=== PATIENT | female | born 1975 | race Caucasian/White ===

== ENCOUNTER → 2020-06-27 11:41 | Outpatient (CLI) | payer OTHER, SELFPAY ==
--- NOTE | ~2020-06-27 | MM_ITS ---
EXAMINATION: MM screening augie BI w blaire HISTORY: Screening TECHNIQUE: Craniocaudal and mediolateral oblique 3-D tomosynthesis images were obtained and synthetic 2-D images were generated. CAD analysis was submitted and interpreted. COMPARISON: No prior mammogram is available for comparison at this institution. BREAST PARENCHYMAL COMPOSITION: The breasts are heterogeneously dense, which may obscure small masses . FINDINGS: There is no evidence of suspicious mass, calcification, or architectural distortion to sugg est malignancy in either breast. There has been no suspicious interval change. IMPRESSION: 1. No mammographic evidence of malignancy. 2. Recommend routine screening mammography in one year. BI-RADS Category 1: Negative Reviewed, dictated and finalized at location A.
== END ==
PROVIDERS: Visit Provider Nurse Practitioner Obstetrics & Gynecology
DX: Z12.31 Encounter for screening mammogram for malignant neoplasm of breast (principal)
CPT/HCPCS: 77063; 77067

== ENCOUNTER → 2021-08-28 10:35 | Outpatient (CLI) | payer OTHER, SELFPAY ==
--- NOTE | ~2021-08-28 | MM_ITS ---
EXAMINATION: MM screening augie BI w blaire HISTORY: Screening mammogram TECHNIQUE: Craniocaudal and mediolateral oblique 3-D tomosynthesis images were obtained and synthetic 2-D images were generated. CAD analysis was submitted and interpreted. COMPARISON: 06/27/2020 BREAST PARENCHYMAL COMPOSITION: The breasts are extremely dense, which lowers the sensitivity of mamm ography. FINDINGS: RIGHT BREAST: There is an asymmetry in the anterior third of the slightly inner breast on the cranioc audal view and an asymmetry in the posterior third of the breast just below the nipple axis on the me diolateral oblique view. LEFT BREAST: An asymmetry is present in the posterior third of the slightly inner breast on the crani ocaudal view. IMPRESSION: 1. Bilateral asymmetries of the breasts as described above. 2. Additional mammographic views and possible breast ultrasound are recommended. BI-RADS Category 0: Incomplete: Needs additional imaging evaluation. Reviewed, dictated and finalized at location A. IMPRESSION: 1. Bilateral asymmetries of the breasts as described above. 2. Additional mammographic views and possible breast ultrasound are recommended . BI-RADS Category 0: Incomplete: Needs additional imaging evaluation.
== END ==
PROVIDERS: Visit Provider Nurse Practitioner Obstetrics & Gynecology
DX: Z12.31 Encounter for screening mammogram for malignant neoplasm of breast (principal); R92.8 Other abnormal and inconclusive findings on diagnostic imaging of breast
CPT/HCPCS: 77063; 77067

== ENCOUNTER → 2021-10-01 08:07 | Outpatient (CLI) | payer OTHER, SELFPAY ==
--- NOTE | ~2021-10-01 | MMUS_ITS ---
EXAMINATION: MM diagnostic augie BI w blaire, US breast BI complete HISTORY: Bilateral mammographic asymmetries reported on 08/28/2021 screening mammogram TECHNIQUE: Additional 3-D tomosynthesis images of both breasts were performed and synthetic 2-D image s were generated. CAD analysis was submitted and interpreted. High resolution complete bilateral charly st ultrasound was performed. COMPARISON: 08/28/2021 bilateral screening mammogram BREAST PARENCHYMAL COMPOSITION: The breasts are extremely dense, which lowers the sensitivity of mamm ography. FINDINGS: MAMMOGRAPHIC FINDINGS: Numerous benign appearing microcalcifications are scattered in each breast. No suspicious mass or architectural distortion is evident. ULTRASOUND: There are multiple bilateral circumscribed rounded or parallel hypoechoic and sonolucent lesions in e ach breast, the largest on the right situated in the 11:00 area 3 cm from the nipple, measuring 13 x 6 x 11 mm. The largest on the left is situated at 1:00 4 cm from nipple, measuring approximately 2 x 6 x 8.4 mm. No suspicious mass or shadowing is detected.. IMPRESSION: 1. No mammographic evidence of malignancy 2. Routine mammographic screening is recommended BI-RADS Category 2: Benign finding(s). Reviewed, dictated and finalized at location A. RY SHEAR OPERATOR IMPRESSION: 1. No mammographic evidence of malignancy 2. Routine mammographic screening is recommended BI-RADS Category 2: Benign finding(s).
== END ==
PROVIDERS: Visit Provider Nurse Practitioner Obstetrics & Gynecology
DX: R92.8 Other abnormal and inconclusive findings on diagnostic imaging of breast (principal)
CPT/HCPCS: 76641; 77062; 77066; G0279

== ENCOUNTER 2022-10-09 15:24 | Outpatient (CLI) | payer OTHER, SELFPAY ==
--- NOTE | ~2022-10-09 | US_ITS ---
US pelvic complete DATE: 10/09/2022 16:34 INDICATION: Menorrhagia TECHNIQUE: Real-time and color flow imaging of the pelvic structures. Transabdominal approach COMPARISON: None FINDINGS: The uterus measures 9.9 cm height, 5.1 cm AP and 7.1 cm transverse dimension. There is abnormal heterogeneous irregular soft tissue thickening of the endometrium, measuring up to 1.6 cm AP dimension, with prominent color flow signal consistent with vascularity. Differential diagn osis includes endometrial malignancy, submucosal fibroids, polyps.. Gynecologic consult is recommende d. Left ovary measures 4.1 x 3.2 x 3.0 cm. There is a 3.2 x 2.3 x 2.9 cm left ovarian cyst. Right ovary measures 1.2 x 3.7 x 1.3 cm dimension. There is vascular flow to both ovaries. No other pelvic mass or abnormal pelvic free fluid collection is detected. IMPRESSION: Irregular heterogeneous endometrial soft tissue thickening with vascularity; endometrial carcinoma is not excluded. Gynecologic consult is recommended Reviewed, dictated and finalized at Location A. Reviewed, dictated and finalized at location A. UMER EXPERIENCE CONSULTANT IMPRESSION: Irregular heterogeneous endometrial soft tissue thickening with vas cularity; endometrial carcinoma is not excluded. Gynecologic consult is recomme nded
== END 2022-10-09 15:25 | disposition home or self-care (01) ==
LOC: ANHIMG 15:29
PROVIDERS: PCP Nurse Practitioner Family; Visit Provider Nurse Practitioner Obstetrics & Gynecology
DX: N92.0 Excessive and frequent menstruation with regular cycle (principal); R10.2 Pelvic and perineal pain; R10.84 Generalized abdominal pain; D25.1 Intramural leiomyoma of uterus
CPT/HCPCS: 76856

== ENCOUNTER 2022-10-21 10:18 | Emergency (ER) | payer OTHER, SELFPAY ==
[2022-10-21 11:00] VITALS: BP 168/122; PULSE 110; RESP 16; TEMP 37; O2SAT 100
[2022-10-21 11:18] LABS: Basophils Absolute Auto 0.1 K/mm3 (0.0-0.1); Basophils Percent Auto 0.7 % (0.2-1.2); Eosinophils Absolute Auto 0.1 K/mm3 (0-0.3); Eosinophils Percent Auto 0.9 % (0-4.4); Hematocrit 33.5 % (37.0-47.0); Hemoglobin 10.6 g/dL (12.0-15.0); Immature Granulocyte Absolute 0.05 K/mm3 (0.00-0.031); Immature Granulocyte Percent A 0.4 % (0-0.5); Lymphocytes Absolute Auto 1.99 K/mm3 (0.9-3.2); Lymphocytes Percent Auto 17.1 % (18.3-44.2); Mean Corpuscular HGB Conc 31.6 g/dl (32-36); Mean Corpuscular Hemoglobin 24.9 pg (26-34); Mean Corpuscular Volume 78.8 fl (80-100); Mean Platelet Volume 9.1 fl (7.4-10.4); Monocytes Absolute Auto 0.9 K/mm3 (0.1-0.6); Monocytes Percent Auto 7.6 % (2.6-8.5); Neutrophils Absolute Auto 8.5 K/mm3 (1.3-6.7); Neutrophils Percent Auto 73.3 % (45.5-73.1); Platelet Count Result 523 k/mm3 (150-375); Red Blood Count 4.25 M/mm3 (4.2-5.4); Red Cell Distribution Width 14.1 % (11.5-14.5); White Blood Count 11.6 K/mm3 (4.5-10.0)
[2022-10-21 11:19] LABS: Appearance Urine Clear (Clear); Bilirubin Urine Negative (Negative); Blood Urine 3+ (Negative); Glucose Urine UA Negative (Negative); Ketones Urine Negative (Negative); Leukocyte Esterase Ur Negative LEU/UL (Negative); Nitrate Urine Negative (Negative); Protein Urine Negative (Negative); Specific Grav Ur <= 1.005 (1.001-1.035); Urobilinogen Urine 0.2 mg/dL (<2.0)
[2022-10-21 11:31] LABS: Potassium 4.2 mmol/L (3.4-5.0)
[2022-10-21 11:32] LABS: Alanine Aminotransferase 23 U/L (6-35); Albumin Level 4.8 g/dL (3.5-5.1); Alkaline Phosphatase 85 U/L (38-126); Anion Gap 14 mmol/L (8-16); Aspartate Amino Transferase 26 U/L (14-36); Bilirubin,Total 0.3 mg/dL (0.2-1.3); Blood Urea Nitrogen 11 mg/dL (7-17); Calcium 9.5 mg/dL (8.4-10.2); Carbon Dioxide 18 mmol/L (22-30); Chloride 106 mmol/L (98-107); Estimated CRCL calculation 93 ml/min; Estimated Glomerular Filt Rate > 60; Glucose 90 mg/dL (65-110); Sodium 138 mmol/L (137-145)
[2022-10-21 11:33] LABS: INR 1.2; Prothrombin Time 14.4 Seconds (11.1-14.7)
[2022-10-21 11:40] LABS: Mucus Urine Rare /lpf; RBC Urine 0-2 /hpf (0-2); WBC Urine 0-3 /hpf
[2022-10-21 11:45] LABS: Add Urine Microscopic? YES; Color Urine Light Yellow (Yellow)
[2022-10-21 12:12] VITALS: BP 187/103; PULSE 114; RESP 18; O2SAT 100
--- NOTE | 2022-10-21 12:18 | ED.FEMALEGU ---
HPI - Female Genitourinary General Chief complaint: Vaginal Bleeding Stated complaint: menstrual cramps and bleeding more than 1 pad/hr Time Seen by Provider: 10/21/22 12:17 Source: patient and family Mode of arrival: ambulatory Limitations: no limitations History of Present Illness HPI Narrative: Patient is a 47-year-old female with a history of uterine fibroids presenting to the emergency department for evaluation of pelvic cramping and heavy vaginal bleeding. Patient states she has had intermittent heavy vaginal bleeding since October 02. She has been placed on oral TXA as well as Slynd control without much improvement in her symptoms. She denies any brisk bleeding but states that intermittently she does use greater than 1 heavy tampon per hour. Patient also reports aching pelvic cramping which is dull to moderate in nature without radiation to the back. Patient denies any upper abdominal pain. No dysuria or hematuria. Patient recently had an outpatient pelvic ultrasound which revealed uterine fibroids as well as an endometrial biopsy which she believes was normal. Her computer lab assistant is Dr. Guerra. Related Data Home Medications Medication Instructions Recorded Confirmed Slynd 10/21/22 Allergies Allergy/AdvReac Type Severity Reaction Status Date / Time Penicillins Allergy Mild Hives Unverified 10/21/22 11:04 Sulfa (Sulfonamide Allergy Mild Hives / Unverified 10/21/22 11:04 Antibiotics) Red Face Review of Systems Review of Systems: CONSTITUTIONAL: Denies fever, chills, or sweats. CARDIOVASCULAR: Denies chest pain, palpitations, or edema. RESPIRATORY: Denies cough or dyspnea. GASTROINTESTINAL: Denies abdominal pain, nausea, vomiting, or diarrhea. Reports pelvic pain. GENITOURINARY: Denies dysuria or hematuria. Reports vaginal bleeding. SKIN: Denies rash or itching. MUSCULOSKELETAL: Denies back pain, joint pain, or myalgia. NEUROLOGIC: Denies headache, numbness, or weakness. [facility] Past Medical History Medical History (Updated 10/21/22 @ 12:48 by Maria Guadalupe Canales MD) Uterine fibroid Social History Social History (Updated 10/21/22 @ 12:36 by Maria Guadalupe Canales MD) Smoking status: Never smoker Alcohol intake: never Substance use: never Gender identity (if verbalized by the patient): Female Exam Narrative: GENERAL: Awake, alert, conversant HEAD: Normocephalic, atraumatic. EYES: PERRLA and EOMI. ENT: Nares clear, no rhinorrhea or epistaxis. Mucous membranes moist. NECK: Supple. CHEST: No respiratory distress, breathing even and non labored HEART: Regular rate, sinus rhythm ABDOMEN:Non distended, non tender. Pelvis: Labia majora and minora normal without lesions. Vagina with scant blood. No large blood clots or brisk bleeding. No cervical motion tenderness. No adnexal tenderness or fullness bilaterally. No other discharge present. EXTREMITIES: Normal range of motion. No edema. SKIN: Warm, dry, no rash. NEURO:No focal deficits. Alert and oriented x3 Course Vital Signs Vital signs: Vital Signs Temperature 37.0 C 10/21/22 11:00 Pulse Rate 110 H 10/21/22 11:00 Respiratory Rate 16 10/21/22 11:00 Blood Pressure 168/122 H 10/21/22 11:00 Pulse Oximetry 100 10/21/22 11:00 Oxygen Delivery Room Air 10/21/22 11:00 Temperature 37.0 C 10/21/22 11:00 Pulse Rate 114 H 10/21/22 12:12 Respiratory Rate 18 10/21/22 12:12 Blood Pressure 138/94 H 10/21/22 13:03 Pulse Oximetry 100 10/21/22 12:12 Oxygen Delivery Room Air 10/21/22 11:00 MDM - Female Genitourinary MDM Narrative Medical decision making narrative: The patient presenting for evaluation Differential Diagnosis Differential diagnosis: Likely cervicitis, vaginitis, ruptured ovarian cyst and dysmenorrhea Medical Records Attestation: I reviewed the patient's medical records. Lab Data Attestation: I reviewed the patient's lab results. Result diagrams: 10/21/22 11:09 10/21/22 11:09
[2022-10-21] MEDS: ONDANSETRON HCL ODT 4 MG TABLET PO (12:48)
[2022-10-21] MEDS: oxyCODONE/ACETAMINOPHEN (*CRX) 5-325 MG TABLET 1 TABLET PO (12:48)
[2022-10-21 13:03] VITALS: BP 138/94
== END 2022-10-21 13:05 | disposition home or self-care (01) ==
PROVIDERS: Family Medicine; Emergency Provider Emergency Medicine; PCP Nurse Practitioner Family
DX: N92.0 Excessive and frequent menstruation with regular cycle (principal)
CPT/HCPCS: 36415; 80053; 81001; 81025; 85025; 85610; 85730; 99284; A9270

== ENCOUNTER 2022-12-04 07:59 | Outpatient (CLI) | payer OTHER, SELFPAY | END 2022-12-04 08:00 | disposition home or self-care (01) | PROVIDERS: PCP Nurse Practitioner Family; Visit Provider Obstetrics & Gynecology | DX: N92.0 Excessive and frequent menstruation with regular cycle (principal); Z01.818 Encounter for other preprocedural examination | CPT/HCPCS: 36415; 86850; 86900; 86901 ==

== ENCOUNTER 2022-12-06 01:04 | Day surgery (SDC) | payer OTHER, SELFPAY ==
[2022-11-27 13:02] VITALS: BMI 28.2
--- NOTE | 2022-11-27 13:09 | PC.NURSE ---
Report to the Outpatient Waiting Room, entrance under the green pavilion located off [facility], at time 11:30 on date 12/06/22. Planned Procedure Time: 1:30. Time changes happen often and if your time is changed the preop area will call you the afternoon before. - You and your visitor will be asked to self-screen and do not enter if you have any COVID symptoms. - Only one visitor is requested with a max of two and NO children visitors are allowed at this time. - The patient visitor may be requested to leave or wait in car when not with patient due to distancing restrictions. - A mask is REQUIRED within the hospital. Patients may have clear liquids (water, carbonated beverages, clear teas, apple juice) until 3 hours prior to surgery (10:30) with a maximum of 20 ounces. - No food from midnight until time of surgery Take the following medications with a SIP of water the morning of surgery: NONE Medications to discontinue per physician: VITAMINS/SUPPLEMENTS Date to take last dose: 12/02/22 Please no make-up, nail tajik, hairspray, perfume, deodorant, or body powder the day of surgery. No jewelry (including any body piercings) or valuables the day of surgery, leave them at home. Please take a shower or bath the night before, or the morning of, surgery with an antibacterial soap. Wear comfortable, loose fitting clothing. - Jewelry must be removed prior to entering the operating room. Rings and piercings that are not removed may be cut off. - The hospital will not accept responsibility for valuables. - Please leave all valuables, including medications, at home the day of surgery. If you are going home after surgery, a licensed driver guard must drive you home. - NO public transportation without another adult if you receive anesthesia. - We recommend that an adult stay with you for 24 hours following discharge. - We also recommend that you do not drive, make important decision, drink alcoholic beverages, or take any drugs that were not prescribed by your health care provider for at least 24 hours after your discharge time. Follow any additional instructions given to you from your surgeon. If you or anyone in your household have experienced Covid symptoms in the past week, please notify your surgeon or the nurse liaison at the phone number below for possible testing. Telephone instructions given to PT - RACHEL ANDERSON and asked if any additional questions and then verbalized understanding. Patient advised to call surgeon office or pre surgery nurse liaison [phone] if any additional questions.
[2022-12-06] VITALS (10 sets, daily range): BP systolic 96–141; BP diastolic 55–83; PULSE 50–91; RESP 11–18; TEMP 36.3–37.1; O2SAT 98–100
--- NOTE | 2022-12-06 11:51 | WPDANESEPPF ---
Anes - Initial Pre Proc Eval Procedure: Operation Date: 12/06/22 13:30 Proposed Procedures p Robotic Assisted Hysterectomy with Bilateral Salpingectomy - Mumtaz Guerra MD Date/Time: 12/06/22 11:51 Surgeon: Mumtaz Guerra MD Pre Op Diagnosis: menorrhagia Patient Data Age: 47 Gender: F Height: 1.7 m Weight: 81.7 kg Allergies Allergy/AdvReac Type Severity Reaction Status Date / Time Penicillins Allergy Mild Hives Unverified 11/27/22 13:03 Sulfa (Sulfonamide Allergy Mild Hives / Unverified 11/27/22 13:03 Antibiotics) Red Face Home Medications Medication Instructions Recorded Confirmed Type progesterone micronized 200 mg 200 mg PO HS 30 days #30 caps 10/21/22 11/27/22 Rx capsule cholecalciferol (vitamin D3) 125 125 mcg PO DAILY 11/27/22 11/27/22 History mcg (5,000 unit) tablet (Vitamin D3) estradiol 2 mg tablet 2 mg PO DAILY 11/27/22 11/27/22 History mecobalamin (vitamin B12) 1,000 1,000 mcg PO DAILY 11/27/22 11/27/22 History mcg chewable tablet (B12 Active) multivitamin 1 tablet PO DAILY 11/27/22 11/27/22 History Patient hx anesthesia problems: none Family hx anesthesia problems: none Results Review: All pre-operative results and documents have been reviewed as part of the pre-operative evaluation. [facility] Past Medical History Medical History (Updated 10/21/22 @ 12:48 by Maria Guadalupe Canales MD) Uterine fibroid Social History Social History Smoking status: Never smoker Alcohol intake: current Alcohol use details: RARE Substance use: never Substance use type: does not use Living arrangements: with family Gender identity (if verbalized by the patient): Female Spiritual care concerns: No Anes - Eval Final PreProcedure Day of Procedure 12/06/22 11:51 Patient weight: overweight Heart: regular rate and rhythm Lungs: clear to auscultation Airway: Mallampati scale class II Neurological: alert and oriented Last oral intake: >/= 8 hours ASA classification: II Emergent: no Anesthetic plan: proceed Anesthesia type and monitoring: general ETT and standard monitoring Results Review: All pre-operative results and documents have been reviewed as part of the pre-operative evaluation. Informed Consent: The patient's anesthetic plan and its attendant risks and benefits were discussed with the patient/family/POA. Questions were solicited and answers provided to the satisfaction of the patient/family/POA.
[2022-12-06] MEDS: LACTATED RINGERS 1,000 ML 30 ML IV CONT ×2 (11:52→16:35)
[2022-12-06] MEDS: ACETAMINOPHEN 500 MG TABLET 1000 MG PO (11:53)
[2022-12-06] MEDS: KETOROLAC 15 MG/ML VIAL (*BKC) IV PUSH (11:53)
[2022-12-06] MEDS: ONDANSETRON INJ 4 MG/2 ML VIAL IV PUSH (12:01)
[2022-12-06] MEDS: FAMOTIDINE 20 MG/2 ML VIAL IV PUSH (12:01)
--- NOTE | 2022-12-06 14:39 | WPDHPUPDATE1 ---
History and Physical Update Update Date/Time: 12/06/22 14:39 History and Physical has been reviewed, including an updated exam of the patient. There are NO changes in the patient's condition. Risks, benefits, and alternatives have been discussed and questions answered. Patient agrees to proceed with procedure.
[2022-12-06] MEDS: ceFAZolin 2 GM/D5W 50 ML 2 GM/50 ML BAG IVPB (14:43)
--- NOTE | 2022-12-06 16:40 | W.PM.PROC2 ---
Procedure Note - Detailed Date of Procedure 12/06/22 Pre-op Diagnosis menorrhagia Post-op Diagnosis Same Procedure Performed Robot assisted Total hysterectomy with bilateral salpingectomy. Surgeon Mumtaz Guerra MD Anesthesia General Indications heavy vaginal bleeding Findings enlarged fibroid uterus, ovaries, and left tube, right tube was partially resected. Some scarring over the posterior cul-de-sac peritoneum. Description of Procedure This patient was taken to the operating room. She was prepped and draped in the dorsal lithotomy position after induction of general anesthesia. The uterine manipulator and Shirley cup were placed. This was done with a speculum and tenaculum. The speculum was placed. The cervix was grasped with a tenaculum. The stay sutures were placed at 3 and 9:00 a.m.. The stay sutures of 0 Vicryl were tied to the appropriately Size scope after it was slipped around the cervix.. The tip of the JOSY manipulator was placed in the intrauterine cavity. The cup was slid into place around the cervix and into the fornices. It was locked into place. The sutures were then wrapped around the handle and tied under tension. A 8 mm skin incision was made in the left upper quadrant the abdomen. a 5 mm Visiport trocar was inserted into abdominal cavity and pneumoperitoneum was achieved. A 8 mm supraumbilical incision was made and a 8 mm trocar was inserted into the intrauterine cavity under direct visualization of the scope. an 8 mm incision was made in the right upper quadrant of the abdomen and an 8 mm robotic trocar was placed the inter uterine cavity under direct visualization the scope. An 11 mm trocar was inserted in the right upper quadrant of the abdomen rectal is a cystoscope after an incision was made there as well. The robot was docked. Electronic Orientation of the robot was performed. Bilateral ureteral lysis was performed. This was done from the pelvic brim down to the uterine artery. This was done with careful dissection using sharp and blunt dissection. The fallopian tubes were removed bilaterally. The mesosalpinx around the fallopian tubes were cauterized transected with LigaSure cautery. This was done in a bilateral fashion from the ovary to the uterine cornua. The fallopian tube was transected at the uterine cornu and amputated. The tube was taken out the left lower quadrant trocar site. In a stepwise fashion along the lateral aspects of the uterus the round ligament and broad ligaments were cauterized transected down to the level of the uterine arteries. A bladder flap was created in the bladder was moved distally to the end of the cervix and over the Shirley cup. The bilateral uterine arteries were cauterized and transected. Colpotomy was then performed. In a circumferential fashion the vagina was transected using unipolar cautery. The incision was made down on the Shirley cup. The uterus and cervix were taken out through the vagina. A pneumo occluder was placed in the vagina. The vaginal cuff was closed with a 0 V lock suture in a running fashion. The pelvis was irrigated with copious amounts antibiotic irrigation. The ureters were again examined and found to be intact and flowing freely under the uterine arteries into the bladder. The bladder was intact. It was examined directly. The vagina was irrigated with Betadine solution after removal of the Pneumo occluder. the trocars were removed after the robot was undocked. The skin was closed with subacute or Dermabond. The patient was taken to recovery room. She was stable condition. Sponge lap and needle counts were correct x2. Estimated Blood Loss 125 Urine Output 800 Drains Yes Packing No Pathology Yes Complications No immediate complications Condition Stable Disposition Floor
[2022-12-06] MEDS: fentaNYL CITRATE INJ (*CRX) 100 MCG/2 ML VIAL 25 MCG IV PUSH ×6 (16:51→17:19)
[2022-12-06] MEDS: HYDROmorphone HCL INJ (*CRX) 1 MG/ML SYR 0.5 MG IV PUSH ×2 (17:33→17:45)
[2022-12-06] MEDS: KETOROLAC 30 MG/ML VIAL (*BKC) IV PUSH (19:36)
[2022-12-06] MEDS: HYDROcodone/acetaminophen (*CRX) 5-325 MG TABLET 1 TAB PO (23:49)
[2022-12-06] MEDS: SIMETHICONE 80 MG TAB.CHEW (23:50)
[2022-12-06] MEDS: IBUPROFEN 600 MG TABLET PO (23:50)
[2022-12-07] MEDS: SIMETHICONE 80 MG TAB.CHEW (03:50)
[2022-12-07] MEDS: HYDROcodone/acetaminophen (*CRX) 5-325 MG TABLET 1 TAB PO ×2 (03:50→07:53)
[2022-12-07 04:00] VITALS: BP 129/73; PULSE 78; RESP 18; TEMP 37.2; O2SAT 98
[2022-12-07 07:40] VITALS: BP 119/65; PULSE 80; RESP 16; TEMP 37; O2SAT 99
--- NOTE | 2022-12-07 09:17 | WPDANESPN ---
Anes - Prog Note Post-Op Date/Time: 12/07/22 09:17 Cardiovascular status: normal Respiratory status: normal Airway patency: baseline Mental status: baseline Post-Op hydration status: normal Vital Signs: Last Vital Signs Temp 37.2 C 12/07/22 04:00 Pulse 78 12/07/22 04:00 Resp 18 12/07/22 04:00 BP 129/73 12/07/22 04:00 Pulse Ox 98 12/07/22 04:00 O2 Del Method Room Air 12/06/22 23:45 O2 Flow Rate 8 12/06/22 17:05 Pain Score (VAS): 2 I/O: Intake & Output 12/06/22 12/07/22 12/07/22 23:59 07:59 15:59 Intake Total 0 500 Output Total 1000 350 Balance -1000 150 Post-procedural complaints: none Patient Feedback: Patient satisfied with anesthetic care.
--- NOTE | 2022-12-07 10:39 | PM.GYNPNOP ---
UTILITY BAGGER - A/P Postoperative Procedures: Procedures Operation Date: 12/06/22 13:30 Actual Procedure Side Surgeon p Robotic Assisted Hysterectomy with Bilateral Salpingectomy Bilateral Mumtaz Guerra MD Postoperative day: 1 Postoperative status: doing well Postoperative plan: see orders Time Spent With Patient Time: Total time spent is greater than 50% in coordination of care (as documented) at patient's floor/unit and/or counseling patient: Time with patient: 15 - 25 minutes UTILITY BAGGER- PN:Subj Post-Op Subjective Date/time seen: 12/07/22 10:39 Subjective: patient reports feeling better, patient has no complaints and pain is well controlled Exam Const: General: healthy appearing, comfortable and no acute distress Resp: Auscultation: clear to auscultation bilaterally, no rales, no rhonchi and no wheezes Cardio: Rate: regular rate Heart sounds: no click, no murmurs and no rubs GI: Inspection: non-distended Auscultation: normal bowel sounds Extrem: General: normal to inspection, no pedal edema and no calf tenderness UTILITY BAGGER - PN: Obj Data Vital Signs Vital Signs: Vital Signs - 24 hr 12/06/22 12:09 12/06/22 16:35 12/06/22 16:50 Temperature 98.2 F 98.7 F Pulse Rate 91 75 50 L Respiratory Rate 18 15 16 Blood Pressure 141/83 H 121/55 L 96/72 L Pulse Oximetry 100 100 100 Oxygen Delivery Room Air Simple Face Mask Simple Face Mask Oxygen Flow Rate 8 8 12/06/22 17:05 12/06/22 17:20 12/06/22 17:36 Temperature Pulse Rate 52 L 55 L 52 L Respiratory Rate 13 12 11 L Blood Pressure 113/56 L 120/68 117/71 Pulse Oximetry 100 100 100 Oxygen Delivery Simple Face Mask Room Air Room Air Oxygen Flow Rate 8 12/06/22 17:51 12/06/22 18:03 12/06/22 19:30 Temperature 97.3 F L Pulse Rate 55 L 56 L 56 L Respiratory Rate 11 L 11 L 18 Blood Pressure 112/65 118/68 121/66 Pulse Oximetry 100 99 Oxygen Delivery Room Air Room Air Oxygen Flow Rate 12/06/22 23:45 12/06/22 23:45 12/07/22 04:00 Temperature 98.1 F 99 F Pulse Rate 88 78 Respiratory Rate 16 18 Blood Pressure 126/66 129/73 Pulse Oximetry 98 98 Oxygen Delivery Room Air Oxygen Flow Rate 12/07/22 07:40 12/07/22 07:40 Temperature 98.6 F Pulse Rate 80 Respiratory Rate 16 Blood Pressure 119/65 Pulse Oximetry 99 Oxygen Delivery Room Air Oxygen Flow Rate Intake/Output Intake/Output: Intake & Output 12/04/22 12/05/22 12/06/22 12/07/22 23:59 23:59 23:59 23:59 Intake Total 50 500 Output Total 1000 350 Balance -950 150 Meds/Results Medications: Active Medications Generic Name Dose Route Start Last Admin Trade Name Freq PRN Reason Stop Dose Admin Hydrocodone Bitart/Acetaminophen 1 tab 12/06/22 18:15 12/07/22 07:53 Hydrocodone/Acetaminophen (*Crx) 5-325 Mg Tablet PO 1 tab Q3H PRN Administration Pain Rated 5 or Less Hydrocodone Bitart/Acetaminophen 1 tab 12/06/22 18:15 Hydrocodone/Acetaminophen (*Crx) 10-325 Mg Tablet PO Q3H PRN Pain Rated 6 or Greater Ibuprofen 600 mg 12/06/22 18:15 12/06/22 23:50 Ibuprofen 600 Mg Tablet PO 600 mg Q6H PRN Administration Cramping Ketorolac Tromethamine 30 mg 12/06/22 18:15 12/06/22 19:36 Ketorolac 30 Mg/Ml Vial (*Bkc) IV PUSH 12/11/22 18:14 30 mg Q6H PRN Administration Pain Rated 4-6 Naloxone HCl 0.1 mg 12/06/22 18:15 Naloxone Hcl 0.4 Mg/Ml Vial IV PUSH Q2M PRN Respiratory rate less than 10 Ondansetron HCl 4 mg 12/06/22 18:15 Ondansetron Inj 4 Mg/2 Ml Vial IV PUSH Q6H PRN Nausea And Vomiting
== END 2022-12-07 12:10 | disposition home or self-care (01) ==
LOC: ANHSURGERY 11:14 → ANHOB2 18:17
PROVIDERS: PCP Nurse Practitioner Family; Visit Provider Obstetrics & Gynecology
PROC: (CPT 58571; principal; 2022-12-06 13:30)
DX: N92.0 Excessive and frequent menstruation with regular cycle (principal); D25.9 Leiomyoma of uterus, unspecified; F10.90 Alcohol use, unspecified, uncomplicated; E66.3 Overweight; Z68.27 Body mass index [BMI] 27.0-27.9, adult; Z79.3 Long term (current) use of hormonal contraceptives; Z79.899 Other long term (current) drug therapy
CPT/HCPCS: 58571; S2900; 36415; 86850; 86900; 86901; 88307; 99199; A9270; J0690; J1100; J1170; J1885; J2250; J2405; J2704; J2710; J3010; J7030; J7120